=== PATIENT | female | born 1990 | race American Indian/Alaskan Native ===

== ENCOUNTER 2019-12-02 14:45 | Inpatient (IN) | payer OTHER ==
[2019-12-02] MEDS ORDERED: ONDANSETRON 4 MG/2 ML INJ IV PRN (14:52)
--- NOTE | 2019-12-02 14:59 | History and Physical Report ---
<UNIQUE CABRAL - Last Filed: 12/02/19 16:33> History of Present Illness Date of examination: 12/02/19 (Pt unable to keep down liquids or solids for 1 week) Date of admission: 12/02/2019 Chief complaint: Pt was seen in the office d/t nausea and vomiting. States that she has not been able keep any solids or liquids down for the past week and has lost weight within that week. History of present illness: EDC 07/18/20 Past History : 4 # 3 Delivery date: 2015 Weeks Gestation: 35 labor: yes Delivery type: Anesthesia type: epidural Delivery location: [facility] Sex: Male weight: 3-12 Past Medical History: Reviewed history from 11/09/2015 and no changes required: Negative Past Medical History Past Surgical History: Reviewed history from 11/09/2015 and no changes required: negative Past Medical History Anesthesia Complications: negative Anemia: negative Autoimmune Disorder: negative Bleeding Disorder: negative Blood Transfusions: negative Breast Disease: negative Diabetes: negative Heart Disease: negative Hypertension: positive, Pre eclampsia Hepatitis/Liver Disease: negative Kidney Disease/UTI: negative Neurologic/Epilepsy/Migraines: negative Phlebitis/Varicosities: negative Psychiatric: negative Pulmonary Disease/Asthma: negative Thyroid Disease: negative Hospitalizations: negative Surgery (Non-protection manager): negative Abnormal PAP: negative HUMZA Exposure: negative Infertility: negative Uterine Anomaly: negative Uterine Surgery (not C/S): negative Other Gynecologic Problems: negative Social Hx: Patient is single in committed relationship Smoking History: Patient has never smoked. Infection History Hx of STD: none HIV Risk Eval: low risk Hepatitis B Risk Eval: low risk Personal hx. of genital herpes: no Partner hx. of genital herpes: no Rash, Viral, or Febrile illness since last LMP? no Varicella/Chicken Pox Status: Previous Disease TB Risk: no Genetic History Congenital Heart Defect: Mom: no Dad: no Rosalva Disease: Mom: no Dad: no Thalassemia Mom: no Dad: no Neural Tube Defect Mom: no Dad: no Down's Syndrome Mom: no Dad: no Maninder-Sachs Mom: no Dad: no Sickle Cell Disease/Trait Mom: no Dad: no Hemophilia Mom: no Dad: no Muscular Dystrophy Mom: no Dad: no Cystic Fibrosis Mom: no Dad: no Manlius Chorea Mom: no Dad: no Mental Retardation Mom: no Dad: no Fragile X Mom: no Dad: no Other Genetic/Chromosomal Disorder Mom: no Dad: no Child w/other defect Mom: no Dad: no Enviromental Exposures Xray Exposure: no Medication, drug, or alcohol use since LMP: no Chemical/Other Exposure: no Exposure to Cat Liter: no Hx of Parvovirus (Fifth Disease): no Occupational Exposure to Children: none Comments: Works at a [employer] with [employer] but has no contact with them. Active Medications (reviewed today): ACYCLOVIR 400 MG ORAL TABLET (ACYCLOVIR) 1 po tid x 5 days prn METRONIDAZOLE 500 MG ORAL TABLET (METRONIDAZOLE) take all 4 pills at one time Current Allergies (reviewed today): LATEX GLOVES (DISPOSABLE GLOVES) (Critical) ALEVE (NAPROXEN SODIUM CAPS) (Critical) Past History Past Medical History: no pertinent history Past Surgical History: no surgical history Family/Genetic History: none Social history: no significant social history - Obstetrical History Expected Date of Delivery: 07/18/20 Actual Gestation: 7 Week(s) 2 Day(s) : 4 Para: 0 Hx # Term Pregnancies: 0 Number of Pregnancies: 1 Spontaneous Abortions: 0 Induced : 0 Number of Living Children: 1 Medications and Allergies Allergies Allergy/AdvReac Type Severity Reaction Status Date / Time latex Allergy Hives Verified 12/02/19 15:32 Latex, Natural Rubber Allergy Hives Verified 12/02/19 15:32 naproxen Allergy Hives Verified 12/02/19 15:32 naproxen sodium [From Aleve] Allergy Hives Verified 12/02/19 15:32 Home Medications Medication Instructions Recorded Confirmed Last Taken Type Ondansetron [Zofran Odt] 4 mg PO Q4H PRN #20 tab.rapdis 11/07/15 05/29/16 12/22/15 14:00 Rx 4 mg Famotidine [Pepcid] 10 mg PO BID #30 tablet 11/25/15 05/29/16 Unknown Rx Ondansetron [Zofran INJ] 4 mg IV Q12HR #14 vial 11/25/15 05/29/16 1 Day Ago Rx ~12/21/15 4 mg Promethazine HCl [Phenergan SUPPOS] 25 mg RC Q6HR #30 supp.rect 11/25/15 05/29/16 1 Day Ago Rx ~12/21/15 25 propylthiouraciL [Propylthiouracil] 50 mg PO Q12HR #60 tablet 11/25/15 05/29/16 12/22/15 02:00 Rx 50 mg methIMAzole [Methimazole] 15 mg PO Q12H #60 tablet 12/23/15 05/29/16 1 Day Ago Rx ~05/28/16 Potassium Chloride 20 meq PO DAILY #7 tab.er.prt 12/26/15 05/29/16 Unknown Rx Labetalol HCl 200 mg PO BID #60 tablet 06/02/16 Unknown Rx Lidocain2.5%/Prilocai2.5% [Emla] 5 gm TP PRN #1 tube 06/02/16 Unknown Rx Active Meds: Active Medications Dextrose/Lactated Ringer's (D5lr) 1,000 mls @ 500 mls/hr IV DIRECT LISETTE Stop: 12/03/19 16:59 Dextrose/Lactated Ringer's (D5lr) 1,000 mls @ 150 mls/hr IV DIRECT LISETTE Metoclopramide HCl (Reglan) 10 mg IV Q6H LISETTE Multivitamins/Iron/Calcium ( Vitamin) 1 each PO QDAY LISETTE Ondansetron HCl (Zofran) 4 mg IV Q6H PRN PRN Reason: N/V unrelieved by Reglan Promethazine HCl (Phenergan) 25 mg AL Q6H LISETTE Review of Systems All systems: negative - Physical Exam Breasts: Positive: deferred Cardiovascular: Regular rate, Normal S1, Normal S2 Lungs: Positive: Normal air movement Abdomen: Positive: normal appearance, soft Genitourinary (Female): Positive: normal external genitalia, normal perenium Vulva: both: normal Vagina: Positive: normal moisture. Negative: discharge Cervix: Negative: lesion, discharge Uterus: Positive: normal size, normal contour Adnexa: both: normal Anus/Rectum: Positive: normal perianal skin, heme negative. Negative: rectal mass, hemorrhoids Extremities: Deep Tendon Reflex Grade: Normal +2 Results All other labs normal. Labs to be drawn on admission. Assessment and Plan 29 y.o. @ 7.2 wks with Hyperemesis gravidarum, weight loss of 13 pounds in 1 week. Direct admission to [facility] from office. Orders placed. Will hydrate with IV fluids, administer antiemetics for nausea/vomiting, and draw labs to check on electrolyte levels. <RADHA RODARTE G - Last Filed: 12/02/19 17:14> History of Present Illness Date of admission: 12/02/19 15:17 Medications and Allergies Active Meds: Active Medications Acetaminophen (Tylenol) 650 mg PO Q4H PRN PRN Reason: Pain, Mild (1-3) Dextrose/Lactated Ringer's (D5lr) 1,000 mls @ 500 mls/hr IV DIRECT LISETTE Stop: 12/03/19 16:59 Last Admin: 12/02/19 15:53 Dose: 500 mls/hr Documented by: Dextrose/Lactated Ringer's (D5lr) 1,000 mls @ 150 mls/hr IV DIRECT LISETTE Metoclopramide HCl (Reglan) 10 mg IV Q6H [facility] Last Admin: 12/02/19 15:53 Dose: 10 mg Documented by: Multivitamins/Iron/Calcium ( Vitamin) 1 each PO QDAY LISETTE Ondansetron HCl (Zofran) 4 mg IV Q6H PRN PRN Reason: N/V unrelieved by Reglan Promethazine HCl (Phenergan) 25 mg AL Q6H [facility] Last Admin: 12/02/19 15:53 Dose: 25 mg Documented by: - Vital Signs Vital signs: Vital Signs Temp Resp BP 99.6 F 16 119/70 12/02/19 15:43 12/02/19 15:43 12/02/19 15:43 Temp Pulse Resp BP Pulse Ox 99.6 F 16 119/70 12/02/19 15:43 12/02/19 16:15 12/02/19 15:43 Results All other labs normal.
[2019-12-02] MEDS ORDERED: ACETAMINOPHEN 325 MG TAB PO PRN (15:36)
[2019-12-02] MEDS: PROMETHAZINE 25 MG RECT SUPP PR SCH ×2 (15:53→21:27)
[2019-12-02] MEDS: METOCLOPRAMIDE 10 MG/2 ML INJ IV SCH ×2 (15:53→21:27)
[2019-12-02] MEDS: D5W/LACTATED RINGERS 1,000 ML IV SCH ×2 (15:53→18:17)
[2019-12-02 18:39] LABS: Bacteria,Urine 1+ /HPF (Negative); Bilirubin,Urine NEG (Negative); Blood,Urine NEG (Negative); Color,Urine Yellow (Yellow); Mucus,Urine FEW /HPF; Protein,Urine <15 mg/dL mg/dL (Negative); Urobilinogen,Urine < 2.0 mg/dL (<2.0)
[2019-12-02 20:59] LABS: Basophils # (Auto) 0.1 K/mm3 (0.0-0.1); Basophils % (Auto) 0.9 % (0.0-1.8); Eosinophils % (Auto) 0.3 % (0.0-4.3); Hematocrit 33.2 % (30.3-42.9); Hemoglobin 11.1 gm/dl (10.1-14.3); Lymphocytes # (Auto) 1.4 K/mm3 (1.2-5.4); Lymphocytes % (Auto) 21.3 % (13.4-35.0); Mean Corpuscular HGB Conc 34 % (30-34); Mean Corpuscular Volume 90 fl (79-97); Monocytes # (Auto) 0.7 K/mm3 (0.0-0.8); Monocytes % (Auto) 9.8 % (0.0-7.3); Platelet Count 300 K/mm3 (140-440); Red Cell Distribution Width 13.3 % (13.2-15.2)
[2019-12-02 21:20] LABS: Blood Urea Nitrogen 5 mg/dL (7-17); Calcium 8.9 mg/dL (8.4-10.2); Hemolysis Index 11
[2019-12-02 21:21] LABS: BUN/Creatinine Ratio 10
[2019-12-03] MEDS: PROMETHAZINE 25 MG RECT SUPP PR SCH ×4 (03:31→21:00)
[2019-12-03] MEDS: METOCLOPRAMIDE 10 MG/2 ML INJ IV SCH ×4 (03:31→20:58)
[2019-12-03] MEDS: D5W/LACTATED RINGERS 1,000 ML IV SCH ×3 (03:34→20:58)
[2019-12-03 06:49] LABS: Alanine Aminotransferase 16 units/L (7-56); Albumin 3.7 g/dL (3.9-5)
[2019-12-03 06:50] LABS: Bilirubin,Direct < 0.2 mg/dL (0-0.2)
--- NOTE | 2019-12-03 08:30 | Progress Note ---
Assessment and Plan Pt is 29 y.o. @ 7.3 wks with hyperemesis. States that she is feeling better with IV fluid hydration today. Still some nausea no vomiting. Will continue with antiemetic medication and IV fluid hydration. Will also order TSH, Free T3 and T4. Pt has documented history of hyperthyroid to which she has previously denied but is now stating that it only happens when she is . Will evaluate and refer to [facility] if thyroid labs labs come back abnormal. Subjective - Subjective Date of service: 12/03/19 (Pt states somewhat better) Principal diagnosis: IUP @ 7.3 wks with hyperemesis Interval history: EDC 07/18/20 Past History : 4 # 3 Delivery date: 2015 Weeks Gestation: 35 labor: yes Delivery type: Anesthesia type: epidural Delivery location: [facility] Infant Sex: Male weight: 3-12 Past Medical History: Reviewed history from 11/09/2015 and no changes required: Negative Past Medical History Past Surgical History: Reviewed history from 11/09/2015 and no changes required: negative Past Medical History Anesthesia Complications: negative Anemia: negative Autoimmune Disorder: negative Bleeding Disorder: negative Blood Transfusions: negative Breast Disease: negative Diabetes: negative Heart Disease: negative Hypertension: positive, Pre eclampsia Hepatitis/Liver Disease: negative Kidney Disease/UTI: negative Neurologic/Epilepsy/Migraines: negative Phlebitis/Varicosities: negative Psychiatric: negative Pulmonary Disease/Asthma: negative Thyroid Disease: negative Hospitalizations: negative Surgery (Non-artificial insemination technician): negative Abnormal PAP: negative HUMZA Exposure: negative Infertility: negative Uterine Anomaly: negative Uterine Surgery (not C/S): negative Other Gynecologic Problems: negative Social Hx: Patient is single in committed relationship Smoking History: Patient has never smoked. Infection History Hx of STD: none HIV Risk Eval: low risk Hepatitis B Risk Eval: low risk Personal hx. of genital herpes: no Partner hx. of genital herpes: no Rash, Viral, or Febrile illness since last LMP? no Varicella/Chicken Pox Status: Previous Disease TB Risk: no Genetic History Congenital Heart Defect: Mom: no Dad: no Rosalva Disease: Mom: no Dad: no Thalassemia Mom: no Dad: no Neural Tube Defect Mom: no Dad: no Down's Syndrome Mom: no Dad: no Maninder-Sachs Mom: no Dad: no Sickle Cell Disease/Trait Mom: no Dad: no Hemophilia Mom: no Dad: no Muscular Dystrophy Mom: no Dad: no Cystic Fibrosis Mom: no Dad: no Gui Chorea Mom: no Dad: no Mental Retardation Mom: no Dad: no Fragile X Mom: no Dad: no Other Genetic/Chromosomal Disorder Mom: no Dad: no Child w/other defect Mom: no Dad: no Enviromental Exposures Xray Exposure: no Medication, drug, or alcohol use since LMP: no Chemical/Other Exposure: no Exposure to Cat Liter: no Hx of Parvovirus (Fifth Disease): no Occupational Exposure to Children: none Comments: Works at a [employer] with [employer] but has no contact with them. Active Medications (reviewed today): ACYCLOVIR 400 MG ORAL TABLET (ACYCLOVIR) 1 po tid x 5 days prn METRONIDAZOLE 500 MG ORAL TABLET (METRONIDAZOLE) take all 4 pills at one time Current Allergies (reviewed today): LATEX GLOVES (DISPOSABLE GLOVES) (Critical) ALEVE (NAPROXEN SODIUM CAPS) (Critical) Objective - Vital Signs Latest vital signs: Vital Signs Temp Pulse Resp BP Pulse Ox 12/03/19 05:03 97.8 F 81 16 105/52 99 12/03/19 00:00 98.7 F 80 16 106/57 98 12/02/19 20:28 98.6 F 77 16 105/56 99 12/02/19 16:15 16 12/02/19 15:43 99.6 F 16 119/70 Intake and Output 12/02/19 12/03/19 12/03/19 22:59 06:59 14:59 Intake Total 2000 150 Output Total 200 Balance 1800 150 Intake: IV 2000 D5lr 1,000 ml @ 500 mls/ 2000 hr IV DIRECT LISETTE Rx#: [id number] Intake, Free Water 150 Output: Urine 200 Void 200 Other: Total, Output Amount 200 Voiding Method Toilet Toilet # Voids Void 1 1 Weight 176 lb 178 lb 2.136 oz - Exam Narrative Exam: Mucous membranes and lips appear to be dry. Breasts: Present: deferred Cardiovascular: Present: Regular rate Lungs: Present: Normal air movement Abdomen: Present: normal appearance, soft Vulva: both: normal - Labs Labs: Abnormal lab results 12/02/19 12/02/19 12/02/19 Range/Units 20:37 20:37 20:37 Imperial % (Auto) 9.8 H (0.0-7.3) % Sodium 134 L (137-145) mmol/L Carbon Dioxide 17 L (22-30) mmol/L BUN 5 L (7-17) mg/dL Creatinine 0.5 L (0.6-1.2) mg/dL Albumin (3.9-5) g/dL Lipase 87 H (13-60) units/L /08/18 Range/Units 04:07 Imperial % (Auto) (0.0-7.3) % Sodium (137-145) mmol/L Carbon Dioxide (22-30) mmol/L BUN (7-17) mg/dL Creatinine (0.6-1.2) mg/dL Albumin 3.7 L (3.9-5) g/dL Lipase 87 H (13-60) units/L
[2019-12-03] MEDS ORDERED: PRENATAL VIT27-FE FUMARATE-FOLIC ACID VIT TAB PO SCH (10:00)
[2019-12-04] MEDS: METOCLOPRAMIDE 10 MG/2 ML INJ IV SCH ×2 (03:30→08:59)
[2019-12-04] MEDS: D5W/LACTATED RINGERS 1,000 ML IV SCH (06:19)
--- NOTE | 2019-12-04 07:54 | Discharge Summary ---
Providers - Providers Date of Admission: 12/02/19 15:17 Date of discharge: 12/04/19 (pt feels better, agrees with d/c home) Attending physician: RADHA RODARTE 12/02/19 14:52 Consult to Dietitian/Nutrition [CONS] Routine Physician Instructions: Reason For Exam: Reason for Consult: hyper grav Reason for Consult: Poor oral intake Primary care physician: RADHA RODARTE Hospitalization Reason for admission: hyperemesis Condition: Good Procedures: hydration and management of hyperemesis Hospital course: hydration Disposition: DC-01 TO HOME OR SELFCARE - Discharge Diagnoses (1) Hyperemesis of Status: Acute Comment: home health delivering reglan pump tomorrow Core Measure Documentation - Palliative Care Palliative Care/ Comfort Measures: Not Applicable - Core Measures Any of the following diagnoses?: none Exam - Constitutional Vitals: Temp Pulse Resp BP Pulse Ox 98.3 F 72 20 116/67 100 12/04/19 04:52 12/04/19 04:52 12/04/19 04:52 12/04/19 04:52 12/04/19 04:52 General appearance: Present: no acute distress, well-nourished - EENT Eyes: Present: PERRL ENT: hearing intact, clear oral mucosa - Neck Neck: Present: supple, normal ROM - Respiratory Respiratory effort: normal Respiratory: bilateral: CTA - Cardiovascular Heart Sounds: Absent: rub, click - Extremities Extremities: pulses symmetrical, No edema - Abdominal General gastrointestinal: Present: soft, non-tender, non-distended, normal bowel sounds Female genitourinary: Present: normal - Integumentary Integumentary: Present: clear, warm, dry - Musculoskeletal Musculoskeletal: gait normal, strength equal bilaterally - Psychiatric Psychiatric: appropriate mood/affect, intact judgment & insight - Neurologic Neurologic: CNII-XII intact, moves all extremities Plan Activity: advance as tolerated Diet: regular Follow up with: RADHA RODARTE MD [Primary Care Provider] - 7 Days Prescriptions: Metoclopramide [Reglan] 10 mg PO TID #90 tab
[2019-12-04 08:04] VITALS: BP 115/70
[2019-12-04] MEDS: PROMETHAZINE 25 MG RECT SUPP PR SCH (08:58)
== END 2019-12-04 10:10 | disposition home or self-care (01) | DRG 781 ==
LOC: UNDOADMIN 14:45 → 3A 14:45 → OB 15:17
PROVIDERS: ADMIT Obstetrics & Gynecology; ATTEND Obstetrics & Gynecology
DX: O21.0 Mild hyperemesis gravidarum (principal); Z3A.01 Less than 8 weeks gestation of pregnancy; O10.911 Unspecified pre-existing hypertension complicating pregnancy, first trimester; Z91.040 Latex allergy status
CPT/HCPCS: 36415; 80048; 80076; 81001; 82150; 83690; 84439; 84443; 84481; 85025; G0378; J2765; J7121

== ENCOUNTER 2019-12-30 14:11 | Emergency (ER) | payer OTHER ==
[2019-12-30 16:06] VITALS: BP 113/91
--- NOTE | 2019-12-30 16:12 | Event Note ---
ED Screening Note Date of service: 12/30/19 Time: 16:04 ED Screening Note: 29 yr female presents with hyperemesis followed by [facility] This initial assessment/diagnostic orders/clinical plan/treatment(s) is/are subject to change based on patients health status, clinical progression and re- assessment by fellow clinical providers in the ED. Further treatment and workup at subsequent clinical providers discretion. Patient/guardian urged not to elope from the ED as their condition may be serious if not clinically assessed and managed. Initial orders include: Labs ordered, ACC. IVF
[2019-12-30 16:51] LABS: Basophils # (Auto) 0.1 K/mm3 (0.0-0.1); Basophils % (Auto) 0.9 % (0.0-1.8); Eosinophils % (Auto) 0.6 % (0.0-4.3); Hematocrit 42.6 % (30.3-42.9); Hemoglobin 14.5 gm/dl (10.1-14.3); Lymphocytes # (Auto) 1.1 K/mm3 (1.2-5.4); Lymphocytes % (Auto) 18.3 % (13.4-35.0); Mean Corpuscular HGB Conc 34 % (30-34); Mean Corpuscular Volume 89 fl (79-97); Monocytes # (Auto) 0.5 K/mm3 (0.0-0.8); Monocytes % (Auto) 9.1 % (0.0-7.3); Platelet Count 310 K/mm3 (140-440); Red Cell Distribution Width 14.1 % (13.2-15.2)
[2019-12-30 17:20] LABS: Alanine Aminotransferase 125 units/L (7-56); Albumin 4.5 g/dL (3.9-5); Blood Urea Nitrogen 4 mg/dL (7-17); Calcium 10.1 mg/dL (8.4-10.2); Hemolysis Index 15
[2019-12-30 17:21] LABS: BUN/Creatinine Ratio 8
== END 2019-12-30 17:38 | disposition left against medical advice (07) ==
LOC: ED 14:11
DX: O21.9 Vomiting of pregnancy, unspecified (principal); Z53.21 Procedure and treatment not carried out due to patient leaving prior to being seen by health care provider; Z3A.11 11 weeks gestation of pregnancy
CPT/HCPCS: 36415; 80053; 83690; 85025

== ENCOUNTER 2020-02-11 07:10 | Day surgery (SDC) | payer OTHER ==
[2020-02-07 11:56] LABS: Hematocrit 35.3 % (30.3-42.9); Hemoglobin 11.7 gm/dl (10.1-14.3); Mean Corpuscular HGB Conc 33 % (30-34); Mean Corpuscular Volume 92 fl (79-97); Platelet Count 350 K/mm3 (140-440); Red Blood Count 3.85 M/mm3 (3.65-5.03); Red Cell Distribution Width 14.7 % (13.2-15.2)
[2020-02-07 12:08] LABS: Blood Urea Nitrogen 7 mg/dL (7-17); Calcium 8.8 mg/dL (8.4-10.2); Hemolysis Index 20
[2020-02-07 12:11] LABS: BUN/Creatinine Ratio 14
--- NOTE | 2020-02-10 18:28 | History and Physical Report ---
History of Present Illness Date of examination: 02/07/20 Chief complaint: sterilization History of present illness: Past History : 4 Term Births: 0 Premature Births: 1 Living Children: 1 Para: 1 Mult. Births: 0 Prev : 0 Aborta: 2 Elect. Ab: 1 Spont. 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 of genital herpes: no Partner hx. of genital herpes: no Hx of STD: none Current Allergies (reviewed today): LATEX GLOVES (DISPOSABLE GLOVES) (Critical) ALEVE (NAPROXEN SODIUM CAPS) (Critical) Past Medical History: Reviewed history from 11/09/2015 and no changes required: Negative Past Medical History Past Surgical History: Reviewed history from 01/02/2020 and no changes required: D&C: (01/02/2020) Family History Summary: Reviewed history and no changes required: 02/10/2020 Other Family Member - Has No Family History of Uterine Cancer - Entered On: 11/09/2015 Other Family Member - Has No Family History of Small Bowel Cancer - Entered On: 11/09/2015 Other Family Member - Has No Family History of Stomach Cancer - Entered On: 11/09/2015 Other Family Member - Has No Family History of Pancreatic Cancer - Entered On: 11/09/2015 Other Family Member - Has No Family History of Ovarvian Cancer - Entered On: 11/09/2015 Other Family Member - Has No Family History of Kidney/Urinary Tract Cancer - Entered On: 11/09/2015 Other Family Member - Has No Family History of DVT/PE on OCP - Entered On: 11/09/2015 Other Family Member - Has No Family History of Colon Cancer - Entered On: 11/09/2015 Other Family Member - Has No Family History of Brain Cancer - Entered On: 11/09/2015 Other Family Member - Has No Family History of Breast Cancer - Entered On: 11/09/2015 Other Family Member - Has No Family History of Biliary Tract Cancer - Entered On: 11/09/2015 Social History: Reviewed history from 11/09/2015 and no changes required: Patient is Smoking History: Patient has never smoked. Risk Factors: Smoked Tobacco Use: Never smoker Smokeless Tobacco Use: Never Passive smoke exposure: no Drug use: no HIV high-risk behavior: no Alcohol use: no Exercise: no Seatbelt use: 100 % PAP Smear History: Date of Last PAP Smear: 04/19/2019 Previous Tobacco Use: Signed On 01/08/2020 Smoked Tobacco Use: Never smoker Smokeless Tobacco Use: Never Counseled to quit/cut down: yes Passive smoke exposure: no Drug use: no HIV high-risk behavior: no Caffeine use: 0 drinks per day Previous Alcohol Use: Signed On 01/08/2020 Alcohol use: no Exercise: no Seatbelt use: 100 % Family History Risk Factors: Family History of RI in females < 65 years old: no Family History of RI in males < 55 years old: no Dietary Counseling: pn yes PAP Smear History: Date of Last PAP Smear: 04/19/2019 Physical Exam Appearance: well developed, well nourished, no acute distress Other Exams Lungs: no rales, rhonchi, or wheezes Heart: S1, S2, no murmur, rub, or gallop Genitourinary Exam Uterus: deferred for EUA Impression & Recommendations: Problem # 1: Sterilization (ICD-V25.2) ([id number]) She desires sterilization by removal of the fallopian tubes for the primary prevention of ovarian cancer Possible laparoscopy or laparotomy explained to patient. The risks and alternatives for this surgery were reviewed with the patient. She was informed of possible bleeding, infection, injury to bowel, bladder, ureters or other adjacent organs. The patient was instructed/informed the following: The normal length of hospital stay for this procedure. Nothing to eat or drink after midnight the evening prior to surgery. Pre-op instruction sheets given. Wound care instructions given. The usual discomforts associated with this procedure were detailed. Proper use of pain medicines was reviewed. Patient was given ample opportunity to have all her questions answered before signing informed consent. Risks of regret emphasized. Permanent and irreversible condition explained to patient. Pt verbalized understanding. Pre-operative instructions sheets given. The risks and alternatives to this surgery were reviewed with the patient. Infection precautions reviewed, pt to call for any signs or symptoms of infection. Patient given ample opportunity to have all her questions answered before signing informed consent. Patient informed of possible bleeding. 1%failure rate emphasized. Consent reviewed and signed . Medications and Allergies Allergies Allergy/AdvReac Type Severity Reaction Status Date / Time latex Allergy Hives Verified 02/04/20 16:10 Latex, Natural Rubber Allergy Hives Verified 02/04/20 16:10 naproxen Allergy Hives Verified 02/04/20 16:10 naproxen sodium [From Aleve] Allergy Hives Verified 02/04/20 16:10 Home Medications Medication Instructions Recorded Confirmed Last Taken Type No Known Home Medications [No 02/04/20 02/04/20 Unknown History Reported Home Medications] Active Meds: Active Medications Acetaminophen (Tylenol) 1,000 mg PO PREOP LISETTE Gabapentin (Gabapentin) 300 mg PO PREOP NR Stop: 02/11/20 23:55 Lactated Ringer's (Lactated Ringers) 1,000 mls @ 100 mls/hr IV DIRECT LISETTE Stop: 02/11/20 23:59 Midazolam HCl (Versed) 2 mg IV PREOP NR Stop: 02/11/20 23:59 Exam Vital Signs Temp Pulse Resp BP Pulse Ox 98.2 F 78 18 136/84 97 02/07/20 10:55 02/07/20 10:55 02/07/20 10:55 02/07/20 10:55 02/07/20 10:55 Results - Labs 02/07/20 11:00 02/07/20 11:00 Assessment and Plan - Patient Problems (1) Sterilization Status: Acute
[~2020-02-11 07:10] MED LIST: ACETAMINOPHEN 500 MG TAB PO SCH; GABAPENTIN 300 MG CAP PO NR; LACTATED RINGERS 1,000 ML IV SCH; MIDAZOLAM 2 MG/2 ML INJ IV NR
[2020-02-11] MEDS ORDERED: ONDANSETRON 4 MG/2 ML INJ IV PRN (07:36)
[2020-02-11] MEDS ORDERED: HYDROmorphone 1 MG/1 ML INJ IV PRN (07:36)
--- NOTE | 2020-02-11 07:37 | Anesthesia Day of Surgery ---
Anesthesia Day of Surgery - Day of Surgery Patient Examined: Yes Patient H&P Reviewed: Yes Patient is NPO: Yes
--- NOTE | 2020-02-11 07:37 | Anesthesia Consultation ---
Anesthesia Consult and Med Hx Date of service: 02/11/20 - Airway Anesthetic Teeth Evaluation: Good ROM Head & Neck: Adequate Mental/Hyoid Distance: Adequate Mallampati Class: Class II Intubation Access Assessment: Probably Good - Pulmonary Exam CTA: Yes - Cardiac Exam Cardiac Exam: RRR - Pre-Operative Health Status ASA Pre-Surgery Classification: ASA1 Proposed Anesthetic Plan: General - Pulmonary Hx Smoking: No Hx Respiratory Symptoms: No - Cardiovascular System Hx Hypertension: No Hx Heart Attack/AMI: No - Central Nervous System CVA: No - Endocrine Hx Renal Disease: No Hx Liver Disease: No Hx Insulin Dependent Diabetes: No Hx Non-Insulin Dependent Diabetes: No Hx Thyroid Disease: No - Other Systems Hx Obesity: No - Additional Comments Anesthesia Medical History Comments: No hx anesthetic complications.
[2020-02-11] MEDS ORDERED: ROCURONIUM 50 MG/5 ML INJ IV ONE (08:28)
[2020-02-11] MEDS ORDERED: propofoL 200 MG/20 ML VIAL IV ONE (08:29)
[2020-02-11] MEDS ORDERED: fentaNYL 100 MCG/2 ML INJ ONE (08:29)
[2020-02-11] MEDS ORDERED: BUPIVACAINE/PF (0.5%) 5 MG/1 ML 30 ML VIAL INFILTRATI ONE ×2 (08:35→09:26)
[2020-02-11] MEDS ORDERED: NEOSTIGMINE 10MG/10 ML INJ MDV ONE (09:38)
[2020-02-11] MEDS ORDERED: GLYCOPYRROLATE 0.4 MG/2 ML INJ ONE (09:38)
[2020-02-11] MEDS ORDERED: ONDANSETRON 4 MG/2 ML INJ ONE (09:38)
[2020-02-11] MEDS ORDERED: KETOROLAC 30 MG/1 ML INJ ONE (09:38)
[2020-02-11] MEDS ORDERED: dexAMETHasone 20 MG/5 ML VIAL ONE (09:38)
[2020-02-11] MEDS ORDERED: HYDROmorphone 1 MG/1 ML INJ ONE (09:51)
--- NOTE | 2020-02-11 10:19 | Operative Report ---
Operative Report Operative Report: Date of operation: 02/11/2020 Pre-operative diagnosis: 1. Desires sterilization by bilateral salp ingectomy Post-operative diagnosis: 1. Desires sterilization by bilateral salpingectomy Procedure name(s): 1. Laparoscopic bilateral salpingectomy for sterilization Surgeon: Tita Maciel MD Supervisor Lathing: [] Anesthesia: General endotracheal anesthesia Anesthesiologist: Dr. Zoey Win MD EBL: Minimal Urine output: 100 mL of clear yellow urine Findings: Grossly normal uterus tubes and ovaries Procedure: After risks, benefits, complications, consequences and alternatives for this procedure were discussed with patient and she voiced understanding desire to proceed, the patient was taken to the operating suite and placed in the supine position. General anesthesia was induced. She placed in dorsolithotomy position and prepped and draped in the usual sterile fashion. Timeout was performed. The bladder was drained of approximately 100 cc of clear yellow urine. An operative speculum was introduced into the vagina, and the anterior lip of the cervix was grasped with an Allis clamp. The uterus was sounded to 10 cm. The cervix was progressively dilated to allow the Sargis uterine manipulator to be placed without difficulty. The speculum and clamp were removed. Sterile gloves were placed and attention was turned to the abdomen. An supraumbilical incision was made and a 5 mm bladeless Optiview trocar was placed with laparoscope and camera inserted. No obvious bowel, bladder, ureteral or major vascular injury was noted. The abdomen was insufflated. She was then placed in Trendelenburg position. Grossly normal uterus tubes and ovaries were noted. Then an incision was made approximately 2 cm superior to the symphysis pubis in the midline. An 8 mm bladeless trocar was introduced under the direct visualization. Again no obvious bowel, bladder, ureteral or major vascular injury was noted. The uterus was elevated, and using the 5 mm [place] LigaSure device bilateral salpingectomy was performed in the usual fashion. Each tube was removed through the 8 mm trocar. Attention was turned back to the adnexa when hemostasis was noted bilaterally. The CO2 was released under direct visualization to ensure hemostasis. Hemostasis was noted. The 8 mm trochars removed under direct visualization. Bleeding was noted from the suprapubic incision. To ensure hemostasis a Ken Lorenzo fascial closure device with 0 Vicryl was used to ensure hemostasis. Once hemostasis was noted the procedure was ended. The CO2 was then released. The 5 mm trocar was removed. The incisions were infused with half percent Marcaine without epinephrine. The incisions were reapproximated using 4-0 Vicryl in a subcuticular manner. Hemostasis was noted. Attention was turned to the vagina where the Sargis uterine manipulator was removed. Hemostasis was noted. Patient was taken to recovery room in stable condition.
--- NOTE | 2020-02-11 10:29 | Discharge Summary ---
Providers - Providers Date of discharge: 02/11/20 Attending physician: NAFISA MCCORMICK Primary care physician: CORPORATE RECEPTIONIST Hospitalization Condition: Good Procedures: Laparoscopic bilateral salpingectomy for sterilization Hospital course: Normal Disposition: DC-01 TO HOME OR SELFCARE - Discharge Diagnoses (1) Sterilization Status: Acute Core Measure Documentation - Palliative Care Palliative Care/ Comfort Measures: Not Applicable - Core Measures Any of the following diagnoses?: none Exam - Constitutional Vitals: Temp Pulse Resp BP Pulse Ox 98.7 F 76 16 129/89 100 02/11/20 07:10 02/11/20 07:10 02/11/20 07:10 02/11/20 07:10 02/11/20 07:10 General appearance: Present: no acute distress - Respiratory Respiratory effort: normal - Cardiovascular Rhythm: regular Plan Activity: other (No sex, no driving for 24 hours. Ambulate approximately 1 mile in your property daily.) Weight Bearing Status: Full Weight Bearing Diet: regular (Eat small meals frequently. Drink approximately 75 ounces of water a day.) Wound: open to air, keep clean and dry Special Instructions: no heavy lifting (Greater than 25 pound) Follow up with: PRIMARY CARE, [Primary Care Provider] - 7 Days NAFISA MCCORMICK MD [Staff Physician] - (As scheduled) Prescriptions: oxyCODONE /ACETAMINOPHEN [Percocet 5/325] 1 - 2 tab PO Q6HR PRN #7 tablet PRN Reason: Pain
[2020-02-11 11:33] VITALS: BP 121/82
--- NOTE | 2020-02-11 12:47 | Post Anesthesia Evaluation ---
- Post Anesthesia Evaluation Patient Participated: Yes Airway Patent: Yes Stable Respiratory Function: Yes Nausea/Vomiting: No Temp > 96.8F: Yes Pain Manageable: Yes Adequeate Hydration: Yes Anesthesia Complications: No
== END 2020-02-11 12:14 | disposition home or self-care (01) ==
LOC: OR 07:10
PROVIDERS: ATTEND Obstetrics & Gynecology
DX: Z30.2 Encounter for sterilization (principal); Z20.828 Contact with and (suspected) exposure to other viral communicable diseases; Z91.040 Latex allergy status; Z88.8 Allergy status to other drugs, medicaments and biological substances; Z79.899 Other long term (current) drug therapy; Z72.89 Other problems related to lifestyle; Z98.890 Other specified postprocedural states; Z82.61 Family history of arthritis; Z82.49 Family history of ischemic heart disease and other diseases of the circulatory system
CPT/HCPCS: 36415; 58661; 80048; 81025; 85027; 86850; 86900; 86901; 88302; J1100; J1170; J1885; J2250; J2405; J2704; J2710; J3010; J7120; U0003

== ENCOUNTER 2020-04-30 10:56 | Observation (INO) | payer OTHER ==
--- NOTE | 2020-04-27 14:20 | Anesthesia Consultation ---
Anesthesia Consult and Med Hx Date of service: 04/30/20 - Airway Anesthetic Teeth Evaluation: Chipped, Crowns ROM Head & Neck: Adequate Mental/Hyoid Distance: Adequate Mallampati Class: Class II Intubation Access Assessment: Good - Pre-Operative Health Status ASA Pre-Surgery Classification: ASA2 Proposed Anesthetic Plan: General Nerve Block: TAP - Pulmonary Hx Smoking: No Hx Asthma: No Hx Respiratory Symptoms: No (+2FS) COPD: No Hx Pneumonia: No - Cardiovascular System Hx Hypertension: No (Gestational) Hx Coronary Artery Disease: No Hx Heart Attack/AMI: No Hx Angina: No Hx Percutaneous Transluminal Coronary Angioplasty (PTCA): No Hx Pacemaker: No Hx Internal Defibrillator: No Hx Valvular Heart Disease: No Hx Heart Murmur: No Hx Peripheral Vascular Disease: No - Central Nervous System Hx Psychiatric Problems: No - Endocrine Hx Renal Disease: No Hx End Stage Renal Disease: No Hx Liver Disease: No Hx Insulin Dependent Diabetes: No Hx Non-Insulin Dependent Diabetes: No Hx Thyroid Disease: No Hx Hypothyroidism: Yes (with last in 2915) Hx Hyperthyroidism: Yes - Hematic Hx Anemia: Yes Hx Sickle Cell Disease: No - Other Systems Hx Alcohol Use: Yes Hx Cancer: No Hx Obesity: No
[2020-04-27 14:22] LABS: Basophils % (Auto) 0.8 % (0.0-1.8); Eosinophils % (Auto) 0.4 % (0.0-4.3); Hematocrit 36.4 % (30.3-42.9); Hemoglobin 12.3 gm/dl (10.1-14.3); Mean Corpuscular HGB Conc 34 % (30-34); Mean Corpuscular Volume 88 fl (79-97); Monocytes # (Auto) 0.4 K/mm3 (0.0-0.8); Monocytes % (Auto) 8.1 % (0.0-7.3); Platelet Count 293 K/mm3 (140-440); Red Blood Count 4.15 M/mm3 (3.65-5.03); Red Cell Distribution Width 13.4 % (13.2-15.2)
[2020-04-27 14:45] LABS: Blood Urea Nitrogen 5 mg/dL (7-17); Hemolysis Index 8
[2020-04-27 14:50] LABS: BUN/Creatinine Ratio 7
--- NOTE | 2020-04-28 18:12 | History and Physical Report ---
History of Present Illness Date of examination: 04/27/20 History of present illness: Patient has been reassessed/reevaluated. H&P has been reviewed. No interval changes. This is a 29 years old female who presents for complains of menorrhagia and dysmenorrhea. The symptoms began >1 year ago. She complains of heavy bleeding, dysmenorrhea, history of fibroids and cramping, but denies irregular menses, mid-cycle spotting, lack of menses, clotting, history of ovarian cysts, history of thyroid disease, history of PCOS, history of bleeding disorder, lightheadedness and fatigue. Menstrual flow lasts 5 days and > 7 days. Patient's work up has included transvaginal ultrasound which reveal leiomyoma. Patient's symptoms when present disrupts her normal daily activities Patient desires definitive treatment Conservative therapies have failed. Patient desires definitive treatment Vital Signs: Patient Profile: 29 Years Old Female Height: 64 inches Weight: 184 pounds BMI: 31.58 Temp: 97.9 degrees F BP sittin / 80 (right arm) Current Method of Contraception: None Date of Last Pap Smear: 04/08/2020 Past History : 4 Term Births: 0 Premature Births: 1 Living Children: 1 Para: 1 Mult. Births: 0 Prev : 0 Aborta: 3 Elect. Ab: 1 Spont. 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 of genital herpes: no Partner hx. of genital herpes: no Hx of STD: none Current Allergies (reviewed today): LATEX GLOVES (DISPOSABLE GLOVES) (Critical) ALEVE (NAPROXEN SODIUM CAPS) (Critical) Past Medical History: Fibroids Past Surgical History: D&C: (01/02/2020) Tubal Ligation (02/11/2020) (B) salpingectomy Family History Summary: Other Family Member - Has No Family History of Uterine Cancer - Entered On: 11/09/2015 Other Family Member - Has No Family History of Small Bowel Cancer - Entered On: 11/09/2015 Other Family Member - Has No Family History of Stomach Cancer - Entered On: 11/09/2015 Other Family Member - Has No Family History of Pancreatic Cancer - Entered On: 11/09/2015 Other Family Member - Has No Family History of Ovarvian Cancer - Entered On: 11/09/2015 Other Family Member - Has No Family History of Kidney/Urinary Tract Cancer - Entered On: 11/09/2015 Other Family Member - Has No Family History of DVT/PE on OCP - Entered On: 11/09/2015 Other Family Member - Has No Family History of Colon Cancer - Entered On: 11/09/2015 Other Family Member - Has No Family History of Brain Cancer - Entered On: 11/09/2015 Other Family Member - Has No Family History of Breast Cancer - Entered On: 11/09/2015 Other Family Member - Has No Family History of Biliary Tract Cancer - Entered On: 11/09/2015 Social History: Patient is Smoking History: Patient has never smoked. Risk Factors: Smoked Tobacco Use: Never smoker Smokeless Tobacco Use: Never Passive smoke exposure: no Drug use: no HIV high-risk behavior: no Caffeine use: <1 drinks per day Alcohol use: no Exercise: yes Times per week: 2 Seatbelt use: 100 % PAP Smear History: Date of Last PAP Smear: 04/08/2020 Review of Systems General Complains of fatigue. Denies fever, chills, sweats, anorexia, weakness, malaise, weight loss and sleep disorder. Complains of menorrhagia, pelvic pain and painful periods. Denies vaginal discharge, incontinence, dysuria, hematuria, urinary frequency, amenorrhea, abnormal vaginal bleeding, genital sores, decreased libido, painful sex, urinary urgency, hot flashes, vaginal dryness, vaginal itching and vaginal odor. CV Denies chest pains, palpitations, syncope, dyspnea on exertion, orthopnea, PND and peripheral edema. Resp Denies cough, dyspnea at rest, excessive sputum, hemoptysis, wheezing and pleurisy. GI Denies nausea, vomiting, diarrhea, constipation, change in bowel habits, abdominal pain, melena, hematochezia, jaundice, gas/bloating, indigestion/ heartburn, dysphagia and odynophagia. Breast Denies left breast lump, right breast lump, nipple discharge, bloody discharge from nipple, breast pain, abnormal mammogram and breast enlargement. Psych Denies depression, anxiety, irritability and mood swings. Past History Past Medical History: other (SEE HPI FOR DETAILS) Past Surgical History: Other (SEE HPI FOR DETAILS) Social history: full code, other (SEE HPI FOR DETAILS) Family history: other (SEE HPI FOR DETAILS) Medications and Allergies Allergies Allergy/AdvReac Type Severity Reaction Status Date / Time latex Allergy Hives Verified 04/27/20 10:24 Latex, Natural Rubber Allergy Hives Verified 04/27/20 10:24 naproxen Allergy Hives Verified 04/27/20 10:24 naproxen sodium [From Aleve] Allergy Hives Verified 04/27/20 10:24 Home Medications Medication Instructions Recorded Confirmed Last Taken Type No Known Home Medications [No 04/27/20 04/27/20 Unknown History Reported Home Medications] Active Meds: Active Medications Acetaminophen (Acetaminophen 500 Mg Tab) 1,000 mg PO ONCE ONE Stop: 04/30/20 06:01 Celecoxib (Celecoxib 200 Mg Cap) 400 mg PO PREOP NR Stop: 04/30/20 23:59 Fentanyl (Fentanyl 100 Mcg/2 Ml Inj) 100 mcg IV ONCE ONE Stop: 04/30/20 06:01 Gabapentin (Gabapentin 300 Mg Cap) 600 mg PO PREOP NR Stop: 04/30/20 23:59 Lactated Ringer's (Lactated Ringers) 1,000 mls @ 125 mls/hr IV DIRECT LISETTE Magnesium Oxide (Magnesium Oxide 400 Mg Tab) 400 mg PO ONCE ONE Stop: 04/30/20 06:01 Midazolam HCl (Midazolam 2 Mg/2 Ml Inj) 2 mg IV PREOP NR Stop: 04/30/20 23:59 Review of Systems Constitutional: other (SEE HPI FOR DETAILS) Exam - Physical Exam Narrative exam: HEENT: normocephalic, no lesions or deformities Skin no significant abnormal lesions or rashes. 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 Questions answered. Discussed with patient various medical, surgical and radiological therapies common for treatment including expectant management, myomectomy hysterectomy and uterine artery embolization Patient desires hysterectomy Discussed risks and benefits of laparotomy, laparoscopy, vaginal and robotic assisted approaches for hysterectomies Patient desires robotic assisted total hysterectomy. Consent reviewed and signed . The risks and alternatives for this surgery were reviewed with the patient. Discuss the risks of the surgery including infection, bleeding possibly heavy enough to require a blood transfusion, possible damage to bowel, bladder or ureter. Patient understand that this surgery with make her sterile.Patient understands if her ovaries are removed she will become menopausal. Also if unable to complete robitcally a laparotomy may be required. Patient understands and desires to proceed. (2) Menorrhagia Status: Acute Qualifiers: Menorrhagia type: with regular cycle Qualified Code(s): N92.0 - Excessive and frequent menstruation with regular cycle Plan to address problem: Probably secondary to # 1 (3) Dysmenorrhea Status: Acute Plan to address problem: Probably secondary to # 1 (4) Herpes Status: Chronic
--- NOTE | 2020-04-30 07:13 | Anesthesia Day of Surgery ---
Anesthesia Day of Surgery - Day of Surgery Patient Examined: Yes Patient H&P Reviewed: Yes Patient is NPO: Yes
--- NOTE | 2020-04-30 10:18 | Operative Report ---
Operative Report Operative Report: Date of procedure: April 30, 2020 Pre-operative diagnosis: Symptomatic leiomyomata with menorrhalgia, and dysmenorrhea. Pelvic pain Post-operative diagnosis: Same plus pelvic adhesive disease Procedure name(s):Robotic Assisted Total Hysterectomy with bilateral salpingectomy and lysis of adhesions Surgeon: Keaton Hubbard MD Armament Installer: Destiney Helms, certified composites technician Anesthesia: General EBL: 50 cc Complications: None Findings: Patient with a uterus approximately 8 to 10 weeks in size with a 3 to 4 cm posterior leiomyomata. Patient with interrupted fallopian tubes and normal-appearing ovaries with a probable corpus luteum on her left ovary Specimen(s): Uterus with cervix and proximal fallopian tubes Procedure: Patient was brought to the operating room where general anesthesia was induced without difficulty. Patient was placed in the dorsal lithotomy position. Prepped and draped in the usual sterile manner for robotic procedure. Florence catheter was placed without difficulty. Speculum was placed in the vagina. A medium V-Care Uterine manipulator was placed without difficulty. Attention was now switched to the patient's abdomen. A vertical supra-umbilical incision was made with a scalpel. A 10-12 trocar was placed in this incision under direct visualization. Intra-abdominal placement was verified with no evidence of internal organ damage. The patient pelvic findings were noted as above. It was determined that the patient was a candidate for robotic procedure. On both sides the umbilical incision at about 8 cm, incisions were made for robotic trocars. Each robotic trocar was placed under direct visualization with no evidence of internal organ damage. One 5 mm trocar was placed 2 fingerbreadths above the right iliac crest. A 5 mm camera was placed in the right lower quadrant trocar, the 10-12 trocar was removed and a Ken Lorenzo laparoscopic port closure device was placed through this incision under direct visualization with no evidence of internal organ damage. The camera was then replaced into this port. At this time the patient was placed in extreme Trendelenburg. The da Tavares robot was then docked on the patient's left side. The trocars connected to the robot appropriately robotic instruments were placed under direct visualization no evidence of internal organ damage.. At this time I took my place under the robotic operating mcgregor. Starting on the patient's right side the ureter was identified and found to be out of the operative field. Using the robotic vessel sealer the mesosalpinx under the fallopian tube stump and the utero-ovarian complex was then cauterized and cut. This was followed by caut erizing and cutting the right round ligament. The broad ligament was then opened. The bladder flap was formed anteriorly. The posterior broad ligament was then excised. The uterine vessels were skeletonized. The ureter was clearly seen out of the operative field. The bladder was pushed away from the anterior uterus. The right uterine vessels were then cauterized and cut. Attention was then switched to the patient's left side. The same procedure was repeated on the left side with perform the salpingectomy followed by isolating the uterine vessels cauterized and cutting and completing the bladder flap from the left side. At this time the uterus was appearing very cyanotic. After inspecting the bladder flap to insured no evidence of bladder injury, the colpotomy was then started. Incision started at 6:00 until the V-Care could be seen. This incision was extended from 6:00 to 9:00. Then from 6:00 to 3:00. Then from 9:00 to 12:00. This incision was extended from 3:00 to 12:00. At this time colpotomy was complete with no evidence of adjacent organ damage. The doctor of dental surgery remove the uterus from through the colpotomy site. The vaginal cuff was irrigated and cauterized and found to be hemostatic. The cuff was closed with robotically using 0 V- Lock suture. This closure was hemostatic after irrigation and Bovie. All pedicles were inspected and found to be h emostatic. The ureters were identified bilaterally and found to be functioning normal. The patient had clear urine in the Florence catheter with no evidence of mixture with blood. Emilee was placed on the cuff and pedicles for postoperative hemostasis . All instruments were then removed. The large trocar sites were closed in layers 2-0 Vicryl and 4-0 Monocryl. The smaller incisions were closed subcuticularly with 4-0 Monocryl. Dermabond was placed over the skin incisions. The patient tolerated procedure well. She was awakened in the operating room and accompanied to the recovery room in good condition.
--- NOTE | 2020-04-30 10:19 | Short Stay Summary ---
Short Stay Documentation Date of service: 04/30/20 - History Past Medical History: other (SEE HPI FOR DETAILS) Past Surgical History: Other (SEE HPI FOR DETAILS) Social history: full code, other (SEE HPI FOR DETAILS) - Allergies and Medications Current Medications: Allergies latex Allergy (Verified 04/27/20 10:24) Hives Latex, Natural Rubber Allergy (Verified 04/27/20 10:24) Hives naproxen Allergy (Verified 04/27/20 10:24) Hives naproxen sodium [From Aleve] Allergy (Verified 04/27/20 10:24) Hives Home Medications Medication Instructions Recorded Confirmed Last Taken Type RX: Ferrous Sulfate [Feosol 325 MG 325 mg PO BID #60 tablet 04/30/20 Unknown Rx tab] oxyCODONE /ACETAMINOPHEN [Percocet 1 - 2 tab PO Q6HR PRN #20 tablet 04/30/20 Unknown Rx 5/325 mg] Active Medications Celecoxib (Celecoxib 200 Mg Cap) 400 mg PO PREOP NR Stop: 04/30/20 23:59 Last Admin: 04/30/20 06:40 Dose: 400 mg Documented by: Gabapentin (Gabapentin 300 Mg Cap) 600 mg PO PREOP NR Stop: 04/30/20 23:59 Last Admin: 04/30/20 06:40 Dose: 600 mg Documented by: Hydromorphone HCl (Hydromorphone 1 Mg/1 Ml Inj) 0.25 mg IV Q10MIN PRN PRN Reason: Pain, Moderate (4-6) Stop: 04/30/20 17:00 Hydromorphone HCl (Hydromorphone 1 Mg/1 Ml Inj) 0.5 mg IV Q10MIN PRN PRN Reason: Pain , Severe (7-10) Stop: 04/30/20 17:00 Lactated Ringer's (Lactated Ringers) 1,000 mls @ 125 mls/hr IV DIRECT LISETTE Last Admin: 04/30/20 06:50 Dose: 125 mls/hr Documented by: Cefazolin Sodium (Ancef/Sterile Water 2 Gm/20 Ml) 2 gm in 20 mls @ 80 mls/hr IV PREOP NR; Protocol Stop: 04/30/20 23:00 Midazolam HCl (Midazolam 2 Mg/2 Ml Inj) 2 mg IV PREOP NR Stop: 04/30/20 23:59 Last Admin: 04/30/20 07:12 Dose: 2 mg Documented by: Ondansetron HCl (Ondansetron 4 Mg/2 Ml Inj) 4 mg IV ONCE PRN PRN Reason: Nausea And Vomiting - Physical exam General appearance: no acute distress Integumentary: no rash HEENT: Atraumatic Lungs: Normal air movement Breasts: deferred Heart: Regular rate Gastrointestinal: hypoactive bowel sounds, tenderness (Consistent with day of surgery), distended (Soft, consistent with day of surgery), no guarding Female Genitourinary: deferred Rectal Exam: deferred Extremities: no ischemia, pulses intact Neurological: Normal gait, Normal speech - Brief post op/procedure progress note Date of procedure: 04/30/20 (See dictated operative note for details) - Hospital course Hospital course: Patient was admitted underwent the above him procedure without any complications. Patient was admitted and underwent above procedure without complications. Her post operative extended recovery observation course was benign she was afebrile throughout. Patient had no orthostatic symptoms. Patient was tolerating regular diet and voiding without difficulty at time of discharge. Patient incision was healing well without evidence of infection. Patient will be discharged with follow-up in office in 1-2 weeks for postop check. Patient lists Naprosyn as a allergy but she stated that she can take Motrin without a problem. - Disposition Condition at discharge: Good Disposition: DC-01 TO HOME OR SELFCARE - Discharge Diagnoses (1) Intramural leiomyoma of uterus Status: Acute (2) Menorrhagia Status: Acute Qualifiers: Menorrhagia type: with regular cycle Qualified Code(s): N92.0 - Excessive and frequent menstruation with regular cycle (3) Dysmenorrhea Status: Acute (4) Herpes Status: Chronic Short Stay Discharge Plan Activity: advance as tolerated Diet: regular Wound: open to air Additional Instructions: Patient instructed no heavy lifting for 4 weeks. No intercourse for 8 weeks. Call office for fever, chills, nausea, vomiting or pain not controlled by pain medications. Ambulation is encouraged. Patient's call for heavy vaginal bl eeding. Patient instructed to keep her scheduled post operative office appointment. Follow up with: PRIMARY CARE, [Primary Care Provider] - 7 Days Prescriptions: Ferrous Sulfate [Feosol 325 MG tab] 325 mg PO BID #60 tablet oxyCODONE /ACETAMINOPHEN [Percocet 5/325 mg] 1 - 2 tab PO Q6HR PRN #20 tablet PRN Reason: Pain
[2020-04-30] MEDS: HYDROmorphone 1 MG/1 ML INJ IV PRN ×2 (10:35→10:50)
[~2020-04-30 10:56] MED LIST changes: +ACETAMINOPHEN 500 MG TAB PO ONE; -ACETAMINOPHEN 500 MG TAB PO SCH; +BACTERIOSTATIC SODIUM CHLORIDE 0.9% 30 ML VIAL INFILTRATI ONE; +BUPIVACAINE-EPINEPHRINE/PF 0.25%-1:200,000 (30 ML) VIAL INFILTRATI ONE; +CELECOXIB 200 MG CAP PO NR; +GLYCOPYRROLATE 0.4 MG/2 ML INJ ONE; +HYDROmorphone 1 MG/1 ML INJ IV PRN; +LIDOCAINE MPF (2%) 20 MG/1 ML VIAL 5 ML ONE; +MAGNESIUM OXIDE 400 MG TAB PO ONE; +NEOMY 40 MG/POLYMYXIN B 200,000 UNITS/ML (GU) AMPULE IR ONE; +NEOSTIGMINE 10MG/10 ML INJ MDV ONE; +ONDANSETRON 4 MG/2 ML INJ IV PRN; +ONDANSETRON 4 MG/2 ML INJ ONE; +ROCURONIUM 50 MG/5 ML INJ IV ONE; +SODIUM CHLORIDE 0.9% IRR 1,500 ML BOTTLE IR ONE; +SODIUM CHLORIDE 0.9% IRRIG SOLN 2000 ML IR ONE; +ceFAZolin/Water 2 GM/20 ML 2 GM/20 ML SYRINGE IV NR; +fentaNYL 100 MCG/2 ML INJ IV ONE; +fentaNYL 100 MCG/2 ML INJ ONE; +propofoL 200 MG/20 ML VIAL IV ONE
[2020-04-30] MEDS ORDERED: ACETAMINOPHEN 325 MG TAB PO PRN (11:18)
[2020-04-30] MEDS ORDERED: D5W/LACTATED RINGERS 1,000 ML IV SCH (11:18)
[2020-04-30] MEDS ORDERED: MAGNESIUM HYDROXIDE (MOM) ORAL LIQD UDC PO PRN (12:00)
[2020-04-30] MEDS ORDERED: ONDANSETRON 4 MG/2 ML INJ IV PRN (12:00)
[2020-04-30] MEDS ORDERED: HYDROcodone/ACETAMINOPHEN 5-325 MG TAB PO PRN (12:00)
--- NOTE | 2020-04-30 12:14 | Post Anesthesia Evaluation ---
- Post Anesthesia Evaluation Patient Participated: Yes Airway Patent: Yes Stable Respiratory Function: Yes Nausea/Vomiting: No Temp > 96.8F: Yes Pain Manageable: Yes Adequeate Hydration: Yes Anesthesia Complications: No Block Receding Appropriately: Yes Patient on Ventilator: No
[2020-04-30] MEDS ORDERED: ceFAZolin/NS 1 GM/50 ML 1 GM/50 ML BAG IV SCH (16:00)
[2020-04-30 18:40] VITALS: BP 138/78
[2020-04-30] MEDS ORDERED: DOCUSATE SODIUM 100 MG CAP PO SCH (22:00)
== END 2020-04-30 18:40 | disposition home or self-care (01) ==
LOC: OR 10:56 → OB 10:57
PROVIDERS: ADMIT Obstetrics & Gynecology; ATTEND Obstetrics & Gynecology
DX: D25.1 Intramural leiomyoma of uterus (principal); N92.0 Excessive and frequent menstruation with regular cycle; N94.6 Dysmenorrhea, unspecified; E87.5 Hyperkalemia; B00.9 Herpesviral infection, unspecified; Z98.890 Other specified postprocedural states; Z90.710 Acquired absence of both cervix and uterus; Z98.51 Tubal ligation status
CPT/HCPCS: 36415; 58571; 80048; 84703; 85025; 86850; 86900; 86901; 88307; 96361; 96365; 96375; A4217; G0378; J0690; J1170; J2250; J2704; J2710; J3010; J7120; J7121; S2900; J2405